=== PATIENT | female | born 1975 | race Caucasian/White ===

== ENCOUNTER 2016-12-19 21:19 | Emergency (ER) | payer MEDICAID ==
[2014-12-09 11:50] VITALS: BMI 27.1
[~2016-12-19 21:19] MED LIST: COUMADIN5 MG PO; HYDROCODONE-APA1 TAB PO; MORPHINE SULFAT15 M3 PO; PERCOCET 10/3251 TA1 PO; REPREXAIN 10-21 EACH PO; ULTRAM50 MG PO
[2016-12-19 23:41] LABS: UDS - AMPHET POSITIVE QUAL (NEGATIVE); UDS - BARB NEGATIVE QUAL (NEGATIVE); UDS - BENZO POSITIVE QUAL (NEGATIVE); UDS - COCAINE NEGATIVE QUAL (NEGATIVE); UDS - METH NEGATIVE QUAL (NEGATIVE); UDS - OPIATE NEGATIVE QUAL (NEGATIVE); UDS - PCP NEGATIVE QUAL (NEGATIVE); UDS - THC NEGATIVE QUAL (NEGATIVE)
== END 2016-12-20 00:16 | disposition home or self-care (01) ==
LOC: D.ER 21:19
PROVIDERS: Physician Assistant Medical
DX: N76.0 Acute vaginitis (principal); F17.200 Nicotine dependence, unspecified, uncomplicated